=== PATIENT | male | born 1925 | race Caucasian/White ===

== ENCOUNTER → 2017-01-19 | Outpatient (CLI) | payer MEDICARE ==
[~2017-01-19] MED LIST: ASPI-650 PO; BRIM5DRO2 EACHEYE; CEPH-368 PO; DIAZ5TAB PO; DOXA4TAB3 PO; FINA5TAB4 PO; GLIM2TAB2 PO; HYDR-3307 PO; INSU100I7 SQ-INSULIN; LATA2.5D3 EACHEYE; LEVO50TA5 PO; LOSA100T6 PO; LOVA20TA2 PO; METF500T4 PO; ONDA4TAB7 PO
[2017-01-19 14:31] LABS: PATH.CAST-FLAG NOT PRESENT; SPERM-FLAG NOT PRESENT; SRC-FLAG NOT PRESENT; XTAL-FLAG NOT PRESENT; YLC-FLAG NOT PRESENT
[2017-01-19 14:38] LABS: ASPARTATE AMINO TRANSFERASE 11 U/L (15-37); BLOOD UREA NITROGEN 20 mg/dL (7-18)
== END | disposition home or self-care (01) ==
LOC: STAR 13:15
PROVIDERS: ATTEND Orthopaedic Surgery Orthopaedic Surgery of the Spine
DX: Z01.818 Encounter for other preprocedural examination (principal); J98.4 Other disorders of lung; M25.561 Pain in right knee; R79.1 Abnormal coagulation profile; Z87.81 Personal history of (healed) traumatic fracture
CPT/HCPCS: 36415; 71020; 80053; 81001; 85025; 85610; 85651; 85730; 93005